=== PATIENT | male | born 1965 | race Caucasian/White ===

== ENCOUNTER 2020-02-06 10:51 | Emergency (ER) | payer OTHER ==
[~2020-02-06] VITALS: Ht 180.3 cm; Wt 90.0 kg
[2020-02-06 11:18] LABS: BASOPHILS # (AUTO) 0.1 X10'3 (0-0.2); BASOPHILS % (AUTO) 0.9 % (0-1); EOSINOPHILS # (AUTO) 0.1 X10'3 (0-0.9); HEMATOCRIT 47.6 % (42.0-52.0); HEMOGLOBIN 16.1 g/dl (14.0-17.9); LYMPHOCYTES # (AUTO) 1.5 X10'3 (1.1-4.8); LYMPHOCYTES % (AUTO) 26.2 % (21-51); MEAN CORPUSCULAR HEMOGLOBIN 30.9 PG (27.0-31.0); MEAN CORPUSCULAR HGB CONC 33.7 g/dL (33.0-36.5); MEAN CORPUSCULAR VOLUME 91.5 FL (78-98); MEAN PLATELET VOLUME 8.4 FL (7.4-10.4); MONOCYTES # (AUTO) 0.3 X10'3 (0-0.9); MONOCYTES % (AUTO) 6.1 % (2-12); NEUTROPHILS # (AUTO) 3.7 X10'3 (1.8-7.7); NEUTROPHILS % (AUTO) 65.8 % (42-75); PLATELET COUNT 246 X10'3 (140-440); RED CELL DISTRIBUTION WIDTH 13.2 % (11.5-14.5); WHITE BLOOD COUNT 5.7 X10'3 (4.5-11.0)
[2020-02-06 11:33] LABS: ALANINE AMINOTRANSFERASE 43 U/L (12-78); ALBUMIN 4.1 G/DL (3.4-5.0); ALBUMIN/GLOBULIN RATIO 1.2 (1.1-1.5); ALKALINE PHOSPHATASE 85 IU/L (46-116); ANION GAP 6 (8-16); ASPARTATE AMINO TRANSFERASE 24 U/L (10-37); BILIRUBIN,TOTAL 0.9 MG/DL (0.1-1.0); BLOOD UREA NITROGEN 9 MG/DL (7-18); BUN/CREATININE RATIO 7.8 (5.4-32.0); CALCIUM 9.2 MG/DL (8.5-10.1); CHLORIDE 107 MMOL/L (99-107); CREATININE 1.16 MG/DL (0.60-1.10); GLUCOSE 108 MG/DL (70-104); POTASSIUM 3.9 MMOL/L (3.5-5.1); SODIUM 142 MMOL/L (135-145); TOTAL CARBON DIOXIDE 28.7 MMOL/L (24-32); TOTAL PROTEIN 7.6 G/DL (6.4-8.2); eGFR 66 ML/MIN
[2020-02-06 14:17] VITALS: BP 131/77
== END 2020-02-06 15:13 | disposition home or self-care (01) ==
LOC: ER 10:51
DX: R07.89 Other chest pain (principal); R42 Dizziness and giddiness; R11.0 Nausea; E78.00 Pure hypercholesterolemia, unspecified; F17.200 Nicotine dependence, unspecified, uncomplicated; Z88.8 Allergy status to other drugs, medicaments and biological substances
CPT/HCPCS: 36415; 71045; 80053; 84484; 85025; 93005; 99285

== ENCOUNTER 2024-05-22 12:38 | Inpatient (IN) | payer OTHER ==
[~2024-05-22] VITALS: Ht 177.8 cm; Wt 88.5 kg
[2024-05-22 15:02] LABS: ALANINE AMINOTRANSFERASE 35 U/L (12-78); ALBUMIN 4.1 G/DL (3.4-5.0); ALBUMIN/GLOBULIN RATIO 1.1 (1.1-1.5); ALKALINE PHOSPHATASE 87 IU/L (46-116); ANION GAP 12 (8-16); ASPARTATE AMINO TRANSFERASE 22 U/L (10-37); BILIRUBIN,TOTAL 0.9 MG/DL (0.1-1.0); BLOOD UREA NITROGEN 11 MG/DL (7-18); BUN/CREATININE RATIO 9.5 (10.0-20.0); CHLORIDE 105 MMOL/L (99-107); CREATININE 1.16 MG/DL (0.60-1.10); GLUCOSE 133 MG/DL (70-104); POTASSIUM 3.5 MMOL/L (3.5-5.1); SODIUM 141 MMOL/L (135-145); TOTAL CARBON DIOXIDE 23.7 MMOL/L (24-32); TOTAL PROTEIN 7.7 G/DL (6.4-8.2); eCRCL 73 ML/MIN; eGFR 65 ML/MIN
[2024-05-22] MEDS ORDERED: iohexol 300mg/ml 100ml inj. ONE (15:03)
[2024-05-22 15:10] LABS: LIPASE 33 U/L (16-77); PRO BRAIN NATRIURETIC PEPTIDE 50 PG/ML (0-125)
[2024-05-22 15:25] LABS: BASOPHILS % (AUTO) 0.4 % (0-1); EOSINOPHILS % (AUTO) 0.1 % (0-6); HEMATOCRIT 46.6 % (42.0-52.0); HEMOGLOBIN 15.9 g/dl (14.0-17.9); LYMPHOCYTES # (AUTO) 1.1 X10'3 (1.1-4.8); LYMPHOCYTES % (AUTO) 9.8 % (21-51); MEAN CORPUSCULAR HEMOGLOBIN 31.3 PG (27.0-31.0); MEAN CORPUSCULAR HGB CONC 34.2 g/dL (33.0-36.5); MEAN CORPUSCULAR VOLUME 91.6 FL (78-98); MONOCYTES # (AUTO) 0.4 X10'3 (0-0.9); MONOCYTES % (AUTO) 3.8 % (2-12); NEUTROPHILS # (AUTO) 9.2 X10'3 (1.8-7.7); NEUTROPHILS % (AUTO) 85.9 % (42-75); PLATELET COUNT 260 X10'3 (140-440); RED BLOOD COUNT 5.08 X10'6 (4.70-6.10); RED CELL DISTRIBUTION WIDTH 13.3 % (11.5-14.5); WHITE BLOOD COUNT 10.7 X10'3 (4.5-11.0)
[2024-05-22 15:41] LABS: BILIRUBIN,URINE NEGATIVE (Neg); CLARITY,URINE CLEAR (Clear); COLOR,URINE YELLOW (Yellow); GLUCOSE, URINE NEGATIVE (Neg); KETONES,URINE NEGATIVE (Neg); LEUKOCYTE ESTERASE ,URINE NEGATIVE (Neg); NITRITES, URINE NEGATIVE (Neg); OCCULT BLOOD,URINE TRACE-INTACT (Neg); PROTEIN,URINE NEGATIVE (Neg); UROBILINOGEN,URINE 0.2 E.U/dL (0.2-1.0)
[2024-05-22 15:47] LABS: SQUAMOUS EPITHELIAL CELL,UR FEW /LPF (FEW); UA COLLECTION TYPE CLN CATCH MIDSTREAM
[2024-05-22 15:48] LABS: BACTERIA,URINE NONE SEEN /HPF (Neg); WBC,URINE 0-4 /HPF (0-4)
[2024-05-22] MEDS: HYDROcodone/acetaminophen 5mg/325mg tablet PO ONE (16:09)
[2024-05-22] MEDS: dicyclomine 10 MG capsule PO ONE (16:10)
[2024-05-22] MEDS: metoclopramide 5 mg/ml inj IV ONE (16:11)
[2024-05-22] MEDS: diphenhydrAMINE 50 mg/ml inj IV ONE (16:11)
[2024-05-22] MEDS ORDERED: morphine 2 MG/ML inj. syringe IV PRN (16:25)
[2024-05-22] MEDS ORDERED: potassium Cl 40MEQ/1/2NS 520ml 520 ML IV PRN (16:25)
[2024-05-22] MEDS ORDERED: magnesium Cl slow-release 64mg tablet PO PRN (16:25)
[2024-05-22] MEDS ORDERED: potassium Cl 20 mEq SR tablet PO PRN ×2 (16:25)
[2024-05-22] MEDS ORDERED: magnesium sulf-water 2g/50mL 50 ML IV PRN (16:25)
[2024-05-22] MEDS ORDERED: acetaminophen 325mg tablet PO PRN (16:25)
[2024-05-22] MEDS ORDERED: magnesium sulf-water 4G/100mL 100 ML IV PRN (16:25)
[2024-05-22] MEDS: piperacillin/tazo 3.375gm/50ml 50 ML IV SCH (16:28)
[2024-05-22] MEDS: normal saline 1000ml 1,000 ML IV SCH (16:33)
[2024-05-22] MEDS ORDERED: METH-797 PO (18:30)
[2024-05-22] MEDS: K and/or MAG REPLACEMENT MC SCH (20:00)
[2024-05-22 22:20] VITALS: BP 115/69; PULSE 66; RESP 16; TEMP 98.4; O2SAT 94
[2024-05-23] VITALS (19 sets, daily range): BP systolic 109–150; BP diastolic 63–85; PULSE 61–96; RESP 12–18; TEMP 97.8–98.4; O2SAT 93–98
[2024-05-23 06:08] LABS: ALBUMIN 3.2 G/DL (3.4-5.0); ANION GAP 7 (8-16); BLOOD UREA NITROGEN 11 MG/DL (7-18); BUN/CREATININE RATIO 11.1 (10.0-20.0); CALCIUM 8.4 MG/DL (8.5-10.1); CHLORIDE 106 MMOL/L (99-107); CREATININE 0.99 MG/DL (0.60-1.10); GLUCOSE 104 MG/DL (70-104); MAGNESIUM 1.9 MG/DL (1.5-2.4); POTASSIUM 3.5 MMOL/L (3.5-5.1); SODIUM 140 MMOL/L (135-145); TOTAL CARBON DIOXIDE 26.9 MMOL/L (24-32); eCRCL 85 ML/MIN; eGFR 78 ML/MIN
[2024-05-23 06:12] LABS: BASOPHILS % (AUTO) 0.5 % (0-1); EOSINOPHILS # (AUTO) 0.1 X10'3 (0-0.9); EOSINOPHILS % (AUTO) 1.5 % (0-6); HEMATOCRIT 42.4 % (42.0-52.0); HEMOGLOBIN 14.6 g/dl (14.0-17.9); LYMPHOCYTES # (AUTO) 2.4 X10'3 (1.1-4.8); LYMPHOCYTES % (AUTO) 29.5 % (21-51); MEAN CORPUSCULAR HEMOGLOBIN 31.6 PG (27.0-31.0); MEAN CORPUSCULAR HGB CONC 34.4 g/dL (33.0-36.5); MEAN CORPUSCULAR VOLUME 91.9 FL (78-98); MEAN PLATELET VOLUME 8.2 FL (7.4-10.4); MONOCYTES # (AUTO) 0.6 X10'3 (0-0.9); MONOCYTES % (AUTO) 7.9 % (2-12); NEUTROPHILS # (AUTO) 4.9 X10'3 (1.8-7.7); NEUTROPHILS % (AUTO) 60.6 % (42-75); PLATELET COUNT 231 X10'3 (140-440); RED BLOOD COUNT 4.62 X10'6 (4.70-6.10); RED CELL DISTRIBUTION WIDTH 13.5 % (11.5-14.5); WHITE BLOOD COUNT 8.1 X10'3 (4.5-11.0)
[2024-05-23 14:20] LABS: PRE OP PROTIME 10.9 SECONDS (9.0-12.0)
[2024-05-23] MEDS ORDERED: hydrALAZINE 20mg/ml inj. IV PRN (14:25)
[2024-05-23] MEDS ORDERED: morphine 2 MG/ML inj. syringe IV PRN (14:25)
[2024-05-23] MEDS ORDERED: ondansetron/PF 4mg/2ml inj IV PRN ×2 (14:25→16:05)
[2024-05-23] MEDS: ringers solution, lacted 1,000 ML IV SCH (14:25)
[2024-05-23] MEDS ORDERED: morphine 4 MG/ML inj SYRINge IV PRN (14:25)
[2024-05-23] MEDS ORDERED: proCHLORperazine 10 MG/2 ml inj IV PRN (14:25)
[2024-05-23] MEDS ORDERED: meperidine/PF 25mg/ml syringe IV PRN ×2 (14:25)
[2024-05-23] MEDS ORDERED: labetalol 20mg/4ml (5mg/ml) syringe IV PRN (14:25)
[2024-05-23] MEDS ORDERED: sevoflurane 250ml liquid IH ONE (14:26)
[2024-05-23] MEDS ORDERED: midazolam 1 mg/ML 2ml injection ONE (14:36)
[2024-05-23] MEDS ORDERED: fentaNYL /PF 50mcg/ml 5ml ampule ONE (14:37)
[2024-05-23] MEDS ORDERED: rocuronium 10mg/ml inj IV ONE ×2 (14:51→15:07)
[2024-05-23] MEDS ORDERED: propofol inj 20 ML IV ONE (15:06)
[2024-05-23] MEDS ORDERED: ceFOXitin 1000 MG inj ONE ×2 (15:06)
[2024-05-23] MEDS ORDERED: LIDOcaine 2% (20mg/ml) 5ml vial ONE (15:06)
[2024-05-23] MEDS ORDERED: ondansetron/PF 4mg/2ml inj ONE (15:07)
[2024-05-23] MEDS ORDERED: dexamethasone sod phosphate 4mg/ml inj. ONE (15:07)
[2024-05-23] MEDS: BUPIVAcaine 2.5mg/ml inj 50ml vial (contains preservative) ONE (15:09)
[2024-05-23] MEDS ORDERED: neostigmine methylsulfate 1 MG/ML 10ml vial ONE (15:45)
[2024-05-23] MEDS ORDERED: glycopyrrolate 0.2mg/ml inj ONE (15:45)
[2024-05-23] MEDS ORDERED: naloxone 0.4 mg/ml inj IV PRN (16:05)
[2024-05-23] MEDS: acetaminophen 1,000mg/100ml IV 100 ML IV ONE (16:19)
[2024-05-23] MEDS: meperidine/PF 25mg/ml syringe IV PRN (16:45)
[2024-05-23] MEDS: HYDROmorphone inj. 0.5 MG/0.5 ML DISP.SYRIN IV PRN (19:09)
[2024-05-23] MEDS: ondansetron/PF 4mg/2ml inj IV PRN (19:20)
[2024-05-23] MEDS: pantoprazole 40 MG vial IV SCH (23:51)
[2024-05-24 02:00] VITALS: BP 132/79; PULSE 80; RESP 16; TEMP 98.5; O2SAT 97
[2024-05-24 06:00] VITALS: BP 120/63; PULSE 75; RESP 16; TEMP 98.2; O2SAT 96
[2024-05-24 06:49] LABS: BASOPHILS % (AUTO) 0.1 % (0-1); EOSINOPHILS % (AUTO) 0 % (0-6); HEMOGLOBIN 13.6 g/dl (14.0-17.9); LYMPHOCYTES # (AUTO) 0.9 X10'3 (1.1-4.8); LYMPHOCYTES % (AUTO) 7.7 % (21-51); MEAN CORPUSCULAR HEMOGLOBIN 31.3 PG (27.0-31.0); MEAN CORPUSCULAR HGB CONC 34.1 g/dL (33.0-36.5); MEAN CORPUSCULAR VOLUME 91.8 FL (78-98); MEAN PLATELET VOLUME 8.5 FL (7.4-10.4); MONOCYTES # (AUTO) 0.4 X10'3 (0-0.9); MONOCYTES % (AUTO) 3.8 % (2-12); NEUTROPHILS % (AUTO) 88.4 % (42-75); PLATELET COUNT 230 X10'3 (140-440); RED BLOOD COUNT 4.36 X10'6 (4.70-6.10); RED CELL DISTRIBUTION WIDTH 12.9 % (11.5-14.5); WHITE BLOOD COUNT 11.3 X10'3 (4.5-11.0)
[2024-05-24 06:58] LABS: ANION GAP 9 (8-16); BLOOD UREA NITROGEN 10 MG/DL (7-18); BUN/CREATININE RATIO 8.9 (10.0-20.0); CALCIUM 7.9 MG/DL (8.5-10.1); CHLORIDE 106 MMOL/L (99-107); CREATININE 1.12 MG/DL (0.60-1.10); GLUCOSE 132 MG/DL (70-104); MAGNESIUM 1.8 MG/DL (1.5-2.4); SODIUM 140 MMOL/L (135-145); TOTAL CARBON DIOXIDE 25.3 MMOL/L (24-32); eCRCL 75 ML/MIN; eGFR 68 ML/MIN
[2024-05-24 08:00] VITALS: RESP 16; O2SAT 96
[2024-05-24] MEDS: HYDROcodone/acetaminophen 5mg/325mg tablet PO PRN (08:11)
[2024-05-24 15:46] VITALS: RESP 16
[2024-05-24] MEDS ORDERED: docusate sod 100mg capsule PO SCH (20:00)
== END 2024-05-24 16:00 | disposition home or self-care (01) | DRG 417 ==
LOC: ER 12:39 → ED HOLD 16:26 → ORTHO 4S 22:05
PROVIDERS: ADMIT Internal Medicine; ATTEND Internal Medicine
PROC: 8E0W4CZ Robotic Assisted Procedure of Trunk Region, Percutaneous Endoscopic Approach (ICD-10-PCS; 2024-05-23)
PROC: 0FT44ZZ Resection of Gallbladder, Percutaneous Endoscopic Approach (ICD-10-PCS; principal; 2024-05-23 14:26)
DX: K80.00 Calculus of gallbladder with acute cholecystitis without obstruction (principal); N17.0 Acute kidney failure with tubular necrosis; E78.00 Pure hypercholesterolemia, unspecified; Z88.8 Allergy status to other drugs, medicaments and biological substances; Z87.891 Personal history of nicotine dependence
CPT/HCPCS: 36415; 71045; 74176; 76700; 80048; 80053; 81001; 82948; 83690; 83735; 83880; 84484; 85025; 85610; 85730; 87081; 93005; 99291; A4215; A4615; A4618; A6212; A6258; A7000; G0378; J0131; J0694; J1100; J1171; J1200; J2175; J2250; J2405; J2470; J2543; J2704; J2710; J2765; J3010; J3490; J7030; J7120; Q9967

== ENCOUNTER 2024-06-16 10:20 | Emergency (ER) | payer OTHER ==
[~2024-06-16] VITALS: Ht 177.8 cm; Wt 88.0 kg
[~2024-06-16 10:20] MED LIST: METH-797 PO
[2024-06-16 10:22] VITALS: BP 127/80; PULSE 72; RESP 16; O2SAT 97
[2024-06-16] MEDS: mupirocin 2% ointment 22GM TP STA (10:50)
[2024-06-16 10:59] VITALS: TEMP 97.9
== END 2024-06-16 11:01 | disposition home or self-care (01) ==
LOC: ER 10:21
DX: T81.30XA Disruption of wound, unspecified, initial encounter (principal); E78.00 Pure hypercholesterolemia, unspecified; Z88.8 Allergy status to other drugs, medicaments and biological substances; Z79.899 Other long term (current) drug therapy; Z87.891 Personal history of nicotine dependence
CPT/HCPCS: 99282; 99283; A6449